=== PATIENT | female | born 1970 | race Caucasian/White ===

== ENCOUNTER → 2016-11-29 | Outpatient (CLI) | payer OTHER ==
--- NOTE | ~2016-11-29 | US98 ---
[facility] A Service [facility] RADIOLOGY TEXT RESULTS PATIENT: TIM MONET LOCATION: [facility] : 74 UNIT #: [id number] AGE: [address]: Jesica Castillo MD SEX: F ORDER DR: [id number] [facility] [address] [place], [place] [address] [id number] O MR#: [id number] Acc #: [id number] NAME: TIM MONET : 1970 SEX: F STUDY DATE/TIME: 11/29/2016 15:21 UNIT: [facility] ROOM: STUDY DESCRIPTION: US Pelvic Non-OB Complete Attending Physician: Jesica Castillo M.D. Referring Physician: Zion Castillo M.D. Ordering Physician: Jesica Castillo M.D. Primary Care Physician: Jesica Castillo M.D. MEDICAL IMAGING REPORT This report is preliminary unless electronic signature is present EXAM Pelvic ultrasound. INDICATION Abnormal menstrual bleeding since age 16. Chronic symptoms. PROCEDURE Olivera-scale, Doppler imaging of the pelvis via transabdominal and transvaginal approach. COMPARISON STUDIES None. FINDINGS Uterus is anteverted measures 6.9 x 2.6 x 3.1 cm. Endometrium measures 6 mm in thickness. Right ovary unremarkable. The left adnexa is obscured by bowel gas. IMPRESSION 1. Left ovary is not seen. 2. Otherwise normal pelvic ultrasound. Dictated by... Dipesh Cruz M.D. THIS IS AN ELECTRONICALLY VERIFIED REPORT Dipesh Cruz M.D. at 11/30/2016 10:06 AM IRNIA/toshia TD: 11/29/2016 18:45 JOB #: [id number] [facility] A Service [facility] RADIOLOGY TEXT RESULTS PATIENT: TIM MONET LOCATION: [facility] : 74 UNIT #: [id number] AGE: [address]: Jesica Castillo MD SEX: F ORDER DR: MEDICAL IMAGING REPORT Page 1 of 1 COPY
== END | disposition home or self-care (01) ==
LOC: CWCC 15:08
DX: N92.6 Irregular menstruation, unspecified (principal); R25.2 Cramp and spasm
CPT/HCPCS: 76830; 76856